=== PATIENT | female | born 1960 | race Caucasian/White ===

== ENCOUNTER 2020-12-02 16:23 | Emergency (ER) | payer OTHER ==
[~2020-12-02 16:23] MED LIST: BACLOFEN 10MG T10 MG PO
[2020-12-02 16:50] LABS: BASOPHIL 0.7 % (0-2); EOSINOPHIL 1.6 % (0-5); HCT 41.2 % (37.0-47.0); LYMPHOCYTE 17.6 % (15-48); MCV 88.4 fL (78.0-100.0); MONOCYTE 10.6 % (0-12); MPV 9.9 fL (6.0-9.5); NEUTROPHIL 69.1 % (41-80); NRBC 0; PLT 186 K/uL (150-400); RBC 4.66 M/uL (4.20-5.40); RDW 13.9 % (11.5-14.0)
[2020-12-02 17:02] LABS: INR 1.03 (0.9-1.2); PROTHROMBIN TIME 12.8 SECONDS (11.4-13.6); PTT 27.2 SECONDS (22.2-34.7)
[2020-12-02 17:09] LABS: ALBUMIN 3.5 g/dL (3.4-5.0); BILIRUBIN - TOTAL 0.5 mg/dL (0.2-1.0); BUN/CREAT RATIO (CALC) 13.4 RATIO; CREATININE 0.82 mg/dL (0.51-0.95); GLOBULIN (CALCULATION) 3.7 g/dL; POTASSIUM 3.7 mmol/L (3.5-5.1); TOTAL PROTEIN 7.2 g/dL (6.4-8.2)
[2020-12-02 17:16] LABS: CKMB 1.9 ng/mL (0.0-3.6)
[2021-03-12] MEDS ORDERED: ASPIRIN EC81 MG PO (13:24)
[2021-03-12] MEDS ORDERED: ULTRAM50 MG PO (13:24)
[2021-03-12] MEDS ORDERED: LIPITOR40 MG PO (13:24)
[2021-03-12] MEDS ORDERED: PRINIVIL20 MG PO (13:24)
[2021-03-12] MEDS ORDERED: NP THYROID15 MG PO (13:25)
[2021-03-15] MEDS ORDERED: TIZANIDINE HCL4 MG PO (06:51)
== END 2020-12-02 21:49 | disposition other institution (70) ==
LOC: FER 16:23
PROVIDERS: Emergency Medicine
DX: I62.9 Nontraumatic intracranial hemorrhage, unspecified (principal); G81.94 Hemiplegia, unspecified affecting left nondominant side; F17.200 Nicotine dependence, unspecified, uncomplicated; Z20.822 Contact with and (suspected) exposure to COVID-19
CPT/HCPCS: 36415; 70450; 71045; 80053; 80061; 82550; 82553; 83874; 84484; 85025; 85610; 85730; 93005; J7030; U0002

== ENCOUNTER → 2021-03-15 | Day surgery (SDC) | payer OTHER ==
[~2021-03-15] VITALS: Ht 167.6 cm; Wt 45.4 kg
[~2021-03-15] MED LIST changes: +ASPIRIN EC81 MG PO; +LIPITOR40 MG PO; +NP THYROID15 MG PO; +PRINIVIL20 MG PO; +TIZANIDINE HCL4 MG PO; +ULTRAM50 MG PO
== END | disposition home or self-care (01) ==
LOC: FAS 06:35
DX: Z12.11 Encounter for screening for malignant neoplasm of colon (principal); I63.81 Other cerebral infarction due to occlusion or stenosis of small artery; G81.94 Hemiplegia, unspecified affecting left nondominant side; E78.00 Pure hypercholesterolemia, unspecified; I10 Essential (primary) hypertension; E03.9 Hypothyroidism, unspecified; F41.9 Anxiety disorder, unspecified; M19.90 Unspecified osteoarthritis, unspecified site; F17.210 Nicotine dependence, cigarettes, uncomplicated; F32.9 Major depressive disorder, single episode, unspecified; M81.0 Age-related osteoporosis without current pathological fracture; Z79.82 Long term (current) use of aspirin; Z79.899 Other long term (current) drug therapy
CPT/HCPCS: J2704; J7120